=== PATIENT | female | born 1940 | race Two or more races ===

== ENCOUNTER 2023-09-10 09:35 | Inpatient (IN) | payer MEDICARE, MEDICAID ==
[~2023-09-10] VITALS: Ht 152.4 cm; Wt 67.6 kg
[2023-09-10 11:34] LABS: Basophils # (auto) 0 10 ^3/uL (0-0.2); Basophils % (auto) 0.5 % (0.0-2.0); Eosinophils # (auto) 0.1 10 ^3/uL (0-0.8); Eosinophils % (auto) 2.2 % (0.0-7.0); Hematocrit 44.6 % (36.0-46.0); Hemoglobin 14.8 g/dL (12.2-16.2); Lymphocytes % (auto) 29.8 % (10.0-50.0); Mean Corpuscular Hemoglobin 30.2 pg (28.0-32.0); Mean Corpuscular Hgb Conc. 33.2 g/dL (32.0-36.0); Mean Corpuscular Volume 91.2 fL (80.0-100.0); Monocytes # (auto) 0.6 10 ^3/uL (0-1.3); Monocytes % (auto) 9.3 % (0.0-12.0); Neutrophils # (auto) 3.8 10 ^3/uL (1.6-8.6); Neutrophils % (auto) 58.2 % (37.0-80.0); Nucleated Red Blood Cells % 0.1 %; Red Blood Cells 4.89 10^6/uL (4.0-5.20); Red Cell Distribution Width 14.2 % (11.8-14.3); White Blood Cell 6.6 10^3/uL (4.4-10.8)
[2023-09-10 11:51] LABS: Alanine Aminotransferase 14 U/L (7-40); Alkaline Phosphatase 83 U/L (46-116); Anion Gap 4 (5-15); Aspartate Aminotransferase 18 U/L (13-40); BUN/Creatinine Ratio 14.5 (10.0-20.0); Blood Urea Nitrogen 9 mg/dL (9-23); Calcium 9.6 mg/dL (8.7-10.4); Carbon Dioxide 30 mmol/L (20-30); Chloride 102 mmol/L (98-107); Glucose 96 mg/dL (74-106); Potassium 4.3 mmol/L (3.5-5.1); Sodium 136 mmol/L (136-145)
[2023-09-10 11:52] LABS: Albumin 4.6 g/dL (3.2-4.8); Bilirubin, Total 0.7 mg/dL (0.2-1.0); Total Protein 7.6 g/dL (5.7-8.2)
[2023-09-10] MEDS ORDERED: DOCUSATE SOD 100 MG CAP PO PRN (15:45)
[2023-09-10] MEDS ORDERED: HYDROcodone-ACET 5/325MG TAB PO PRN (15:45)
[2023-09-10] MEDS ORDERED: MORPHINE SULFATE INJ 2 MG/ml SYRG IV PRN ×2 (15:45)
[2023-09-10] MEDS ORDERED: SODIUM CHLORIDE 0.9% 1,000 ML IV ONE (15:45)
[2023-09-10] MEDS ORDERED: NITROGLYCERIN 0.4 MG SL TAB SL PRN (15:45)
[2023-09-10] MEDS ORDERED: ONDANSETRON HCL 4 MG/2 ML VIAL IV PRN (15:45)
[2023-09-10] MEDS: ACETAMINOPHEN 325 MG TAB PO PRN (20:33)
[2023-09-10 22:29] LABS: Urine Bacteria FEW /hpf (None Seen); Urine Blood Negative /uL (Negative); Urine Clarity Clear (Clear); Urine Color Colorless (Yellow); Urine Protein, UAD Negative (Negative); Urine Specific Gravity 1.009 (1.001-1.035); Urine Urobilinogen Normal (Negative); Urine WBC 13 /hpf (0 - 5); Urine pH 6.5 (5.0-8.0)
[2023-09-10] MEDS: ATORVASTATIN 20 MG TAB PO SCH (23:53)
[2023-09-11] VITALS (7 sets, daily range): BP systolic 137–147; BP diastolic 70–74; PULSE 52–84; RESP 16–18; TEMP 36.6; O2SAT 92–95
[2023-09-11 05:24] LABS: Basophils # (auto) 0 10 ^3/uL (0-0.2); Basophils % (auto) 0.4 % (0.0-2.0); Eosinophils # (auto) 0.4 10 ^3/uL (0-0.8); Eosinophils % (auto) 4.9 % (0.0-7.0); Hematocrit 41.3 % (36.0-46.0); Lymphocytes # (auto) 2.2 10 ^3/uL (0.4-5.4); Lymphocytes % (auto) 29.8 % (10.0-50.0); Mean Corpuscular Hgb Conc. 33.9 g/dL (32.0-36.0); Mean Corpuscular Volume 91.4 fL (80.0-100.0); Monocytes # (auto) 0.7 10 ^3/uL (0-1.3); Monocytes % (auto) 9.8 % (0.0-12.0); Neutrophils # (auto) 4.1 10 ^3/uL (1.6-8.6); Neutrophils % (auto) 55.1 % (37.0-80.0); Nucleated Red Blood Cells % 0.1 %; Red Blood Cells 4.52 10^6/uL (4.0-5.20); Red Cell Distribution Width 14.8 % (11.8-14.3); White Blood Cell 7.5 10^3/uL (4.4-10.8)
[2023-09-11 05:36] LABS: Alanine Aminotransferase 13 U/L (7-40); Albumin 4.2 g/dL (3.2-4.8); Alkaline Phosphatase 80 U/L (46-116); Anion Gap 6 (5-15); Aspartate Aminotransferase 19 U/L (13-40); BUN/Creatinine Ratio 14.8 (10.0-20.0); Bilirubin, Total 0.6 mg/dL (0.2-1.0); Blood Urea Nitrogen 9 mg/dL (9-23); Calcium 9.2 mg/dL (8.7-10.4); Carbon Dioxide 25 mmol/L (20-30); Chloride 104 mmol/L (98-107); Glucose 102 mg/dL (74-106); Potassium 4.1 mmol/L (3.5-5.1); Sodium 135 mmol/L (136-145); Total Protein 7.1 g/dL (5.7-8.2)
[2023-09-11 05:53] LABS: Triglycerides 106 mg/dL (< 150)
[2023-09-11 05:54] LABS: LDL Cholesterol 77 mg/dL (< 100)
[2023-09-11 05:55] LABS: Cholesterol 146 mg/dL (< 200); HDL Cholesterol 47 mg/dL (40-59)
[2023-09-11] MEDS: ASPirin-EC 81 mg tab PO SCH (10:47)
[2023-09-11] MEDS: ACETAMINOPHEN 325 MG TAB PO PRN ×2 (10:56→22:12)
[2023-09-11] MEDS: ATORVASTATIN 20 MG TAB PO SCH (22:11)
[2023-09-11 23:52] LABS: Erythrocyte Sedimentation Rate 7 mm/hr (0-20)
[2023-09-12 04:59] VITALS: BP 153/74; PULSE 63; RESP 18; TEMP 97.6; O2SAT 94
[2023-09-12 07:14] LABS: Basophils # (auto) 0 10 ^3/uL (0-0.2); Basophils % (auto) 0.5 % (0.0-2.0); Eosinophils # (auto) 0.4 10 ^3/uL (0-0.8); Eosinophils % (auto) 5.7 % (0.0-7.0); Hematocrit 42.6 % (36.0-46.0); Hemoglobin 14.2 g/dL (12.2-16.2); Lymphocytes # (auto) 2.1 10 ^3/uL (0.4-5.4); Lymphocytes % (auto) 32.8 % (10.0-50.0); Mean Corpuscular Hemoglobin 30.2 pg (28.0-32.0); Mean Corpuscular Hgb Conc. 33.3 g/dL (32.0-36.0); Mean Corpuscular Volume 90.5 fL (80.0-100.0); Monocytes # (auto) 0.8 10 ^3/uL (0-1.3); Red Blood Cells 4.71 10^6/uL (4.0-5.20); Red Cell Distribution Width 14.7 % (11.8-14.3); White Blood Cell 6.3 10^3/uL (4.4-10.8)
[2023-09-12 07:54] LABS: Chloride 106 mmol/L (98-107); Potassium 4.5 mmol/L (3.5-5.1)
[2023-09-12 07:55] LABS: Anion Gap 4 (5-15); Carbon Dioxide 30 mmol/L (20-30)
[2023-09-12 07:56] LABS: Calcium 9.3 mg/dL (8.5-10.1)
[2023-09-12 08:00] VITALS: BP 115/70; PULSE 73; PULSE 74; RESP 18; TEMP 97.9; O2SAT 93
[2023-09-12 08:00] LABS: BUN/Creatinine Ratio 17.7 (10.0-20.0); Blood Urea Nitrogen 11 mg/dL (9-23); Glucose 107 mg/dL (74-106)
[2023-09-12 08:04] LABS: Sodium 140 mmol/L (136-145)
[2023-09-12 09:00] VITALS: BP 115/70; PULSE 74; RESP 18; TEMP 97.9; O2SAT 93
[2023-09-12] MEDS: ASPirin-EC 81 mg tab PO SCH (09:31)
[2023-09-12] MEDS: ACETAMINOPHEN 325 MG TAB PO PRN (09:34)
[2023-09-12 13:00] VITALS: BP 121/72; PULSE 70; RESP 20; TEMP 97.7; O2SAT 93
[2023-09-12 13:34] VITALS: BP 115/70; PULSE 74; RESP 18; TEMP 97.9; O2SAT 93
== END 2023-09-12 14:47 | disposition home or self-care (01) | DRG 103 ==
LOC: ER 09:35 → TELE 15:45 → TELE-WESTW 09-11 08:36
PROVIDERS: ADMIT Nurse Practitioner Family; ATTEND Internal Medicine Pulmonary Disease
DX: R51.9 Headache, unspecified (principal); I25.10 Atherosclerotic heart disease of native coronary artery without angina pectoris; Z83.3 Family history of diabetes mellitus; H53.8 Other visual disturbances
CPT/HCPCS: 36415; 70450; 70551; 71045; 80048; 80053; 80061; 81001; 83036; 83880; 84443; 84484; 85025; 85652; 86141; 93005; 93306; G0378; J2405

== ENCOUNTER 2025-02-07 12:10 | Inpatient (IN) | payer OTHER, MEDICAID ==
[~2025-02-07] VITALS: Ht 152.4 cm; Wt 69.1 kg
[2025-02-07 12:58] LABS: Basophils # (auto) 0.1 10 ^3/uL (0-0.2); Basophils % (auto) 0.6 % (0.0-2.0); Eosinophils # (auto) 0.1 10 ^3/uL (0-0.8); Eosinophils % (auto) 1.2 % (0.0-7.0); Hematocrit 41.7 % (36.0-46.0); Hemoglobin 13.8 g/dL (12.2-16.2); Lymphocytes # (auto) 1.6 10 ^3/uL (0.4-5.4); Lymphocytes % (auto) 18.1 % (10.0-50.0); Mean Corpuscular Hemoglobin 29.9 pg (28.0-32.0); Mean Corpuscular Hgb Conc. 33.1 g/dL (32.0-36.0); Mean Corpuscular Volume 90.2 fL (80.0-100.0); Monocytes # (auto) 0.9 10 ^3/uL (0-1.3); Monocytes % (auto) 10.4 % (0.0-12.0); Neutrophils # (auto) 6.1 10 ^3/uL (1.6-8.6); Neutrophils % (auto) 69.7 % (37.0-80.0); Platelet Count (auto) 238 10^3/uL (140-450); Red Blood Cells 4.62 10^6/uL (4.0-5.20); Red Cell Distribution Width 14.6 % (11.8-14.3); White Blood Cell 8.8 10^3/uL (4.4-10.8)
--- NOTE | 2025-02-07 13:21 | DVH ---
Exam: CT CT AB PEL WO CON-NO ORAL OR IV History: pain Comparison Study: None Technique: Multidetector spiral CT of the abdomen was performed from lung bases to pubic symphysis. I maging was performed without IV contrast. Axial, coronal and sagittal multiplanar reformats were obta ined from the axial data set by the technologist. Radiation Dose : 1. Abdomen/Pelvis: CTDIvol 11.1 mGy, DLP 528.3 mGy*cm. Findings: Evaluation of solid organs is limited due to lack of intravenous contrast use. Lung Bases: 0.5 cm nodule in the right middle lobe. Tree-in-bud nodularity at the bilateral lung base s. Cardiomegaly. Coronary artery calcifications. Vascular calcifications of the aorta. Liver: The liver is normal in size. No focal lesions. Gallbladder and Biliary Tree: Unremarkable Spleen: Unremarkable Pancreas: The pancreas is grossly normal in appearance. Adrenal Glands: Unremarkable Kidneys: Kidneys are grossly normal without calculi or hydronephrosis. Bladder: Grossly unremarkable for degree of distention. Bowel: The stomach is grossly normal in appearance. Moderate volume colonic stool. The appendix is no t visualized; however, no secondary findings of acute appendicitis identified. Ascites: Absent Lymphadenopathy: No mesenteric, retroperitoneal or periportal lymphadenopathy. Abdominal Wall and Mesentery: Unremarkable. Vasculature: The visualized abdominal aorta is normal in size and caliber. Evaluation of abdominal a nd pelvic vessels is limited due to lack of intravenous contrast. Pelvic Organs: Unremarkable Musculoskeletal: No aggressive focal bony lesions, acute fractures or dislocation. Multilevel degener ative changes of the spine. Chronic appearing compression fractures of L4 and L1. IMPRESSION: Tree-in-bud nodularity is present in the lung bases which may be infectious or inflammatory. Indeterminate 0.5 cm nodule in the right middle lobe. Moderate volume diffuse colonic stool. Fleischner Society pulmonary nodule recommendations (2017): Single solid nodule <6 mm Low-risk patients: no routine follow-up required High-risk patients: optional CT at 12 months (particularly with suspicious nodule morphology and/or upper lobe location) Radiation optimization: All CT scans at this facility use at least one of these dose optimization randolph hniques: automated exposure control mA and/or kV adjustment per patient size (includes targeted exam s where dose is matched to clinical indication) or iterative reconstruction.
[2025-02-07 13:22] LABS: Alanine Aminotransferase 16 U/L (7-40); Albumin 4.4 g/dL (3.2-4.8); Anion Gap 4 (5-15); Aspartate Aminotransferase 22 U/L (13-40); BUN/Creatinine Ratio 22.2 (10.0-20.0); Bilirubin, Total 0.5 mg/dL (0.2-1.0); Blood Urea Nitrogen 16 mg/dL (9-23); Chloride 105 mmol/L (98-107); Lipase 26 U/L (12-53); Potassium 4.9 mmol/L (3.5-5.1); Sodium 140 mmol/L (136-145); Total Protein 7.1 g/dL (5.7-8.2)
--- NOTE | 2025-02-07 13:22 | ED.PDOC ---
GI ASSESSMENT HPI Comments This is an 84-year-old female who comes in with chief complaint of abdominal pain which is diffuse in nature. The symptoms started approximately two weeks ago and is now associated with some abdominal distention. She is also having some mild difficulty walking. The patient denies any nausea, vomiting or diarrhea. The patient states that the pain is a 9/10 at this time. She was brought to the emergency department's by a friend in a wheelchair. She was actually initially seen by her primary care doctor and then sent to the emergency department's for evaluation because there was a concern about a bowel obstruction. Chief Complaint: Abdominal Pain Time Seen by MD: 12:11 Reviewed Notes: Nurses Notes, Medications, Allergies (No allergies to medications) Allergies: Coded Allergies: NO KNOWN ALLERGIES (Unverified , 09/10/23) Home Meds No Active Prescriptions or Reported Meds Information Source: Patient, Relative Mode of Arrival: Wheelchair Timing: Days Duration: Since onset Prehospital treatment: None Quality: Cramping Vomitus: None Stool: Normal Severity: Moderate Recent: None Recent Hx of: None Pain Location: Diffuse Modifying Factors: Nothing Associated sign and symptoms: Abdominal Pain, Other (Abdominal distention) Past Medical History PAST MEDICAL HISTORY: Denies Surgical History: Hernia Repair, Hysterectomy, Tonsillectomy [employer]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 Family History Family History: Unknown Social History Smoker: Quit Less Than 1 Year, Unknown Alcohol: Occasionally, Unknown Drugs: Denies Drug Use Lives In: Home Constitutional: denies: chills, diaphoresis, fatigue, fever, malaise, sweats, weakness, others EENTM: denies: blurred vision, double vision, ear bleeding, ear discharge, ear drainage, ear pain, ear ringing, eye pain, eye redness, hearing loss, mouth pain, mouth swelling, nasal discharge, nose bleeding, nose congestion, nose pain, photophobia, tearing, throat pain, throat swelling, voice changes, others Respiratory: denies: cough, hemoptysis, orthopnea, SOB at rest, shortness of breath, SOB with excertion, stridor, wheezing, others Cardiovascular: denies: chest pain, dizzy spells, diaphoresis, Dyspnea on exertion, edema, irregular heart beat, left arm pain, lightheadedness, palpitations, PND, syncope, others Gastrointestinal: reports: abdomen distended, abdominal pain; denies: blood streaked bowels, constipated, diarrhea, dysphagia, difficulty swallowing, hematemesis, melena, nausea, poor appetite, poor fluid intake, rectal bleeding, rectal pain, vomiting, others Genitourinary: denies: abnormal vagina bleeding, burning, dyspareunia, dysuria, flank pain, frequency, hematuria, incontinence, pain, , vagina discharge, urgency, others Neurological: denies: dizziness, fainting, headache, left sided numbness, left sided weakness, numbness, paresthesia, pre-existing deficit, right sided numbness, right sided weakness, seizure, speech problems, tingling, tremors, weakness, others Musculoskeletal: denies: back pain, gout, joint pain, joint swelling, muscle pain, muscle stiffness, neck pain, others Integumetry: denies: bruises, change in color, change in hair/nails, dryness, laceration, lesions, lumps, rash, wounds, others Allergic/Immunocompromised: denies: Difficulty Healing, Frequent Infections, Hives, Itching, others Hematologic/Lymphatic: denies: anemia, blood clots, easy bleeding, easy bruising, swollen glands, others Endocrine: denies: excessive hunger, excessive sweating, excessive thirst, excessive urination, flushing, intolerance to cold, intolerance to heat, unexplained weight gain, unexplained weight loss, others Psychiatric: denies: anxiety, bipolar disorder, depression, hopeless, panic disorder, schizophrenia, sleepless, suicidal, others Physical Exam General Appearance: Moderate Distress, Obese HEENT: Normal ENT Inspection, Pharynx Normal, TMs Normal Neck: Full Range of Motion, Non-Tender, Normal, Normal Inspection Respiratory: Chest Non-Tender, Lungs Clear, No Accessory Muscle Use, No Respiratory Distress, Normal Breath Sounds Cardiovascular: No Edema, No JVD, No Murmur, No Gallop, Normal Peripheral Pulses, Regular Rate/Rhythm Breast Exam: Deferred Gastrointestinal: Distended, No Organomegaly, No Pulsatile Mass, Normal Bowel Sounds, Soft, Tenderness Genitalia: Deferred Pelvic: Deferred Rectal: Deferred Extremities: No calf tenderness, Normal capillary refill, Normal inspection, Normal range of motion, Non-tender, No pedal edema Musculoskeletal : Apperance: Normal Neurologic: Alert, director drug safety II-XII nml as Tested, Motor Weakness, Normal Affect, Normal Mood, No Sensory Deficits Cerebellar Function: Normal Reflexes: Normal Skin: Dry, Normal Color, Warm Lymphatic: No Adenopathy Was a procedure done? Was a procedure done?: No GI differential Dx Differential Diagnosis: Cholangitis, Cholecystitis, Diverticular disease, Gastritis/PUD, Gastroenteritis, Inflammatory BD, Pancreatitis, UTI, Electrolyte Imbalance, Food Poisoning X-Ray, Labs, Meds, VS Vital Signs Date Time Temp Pulse Resp B/P (MAP) Pulse Ox O2 Delivery O2 Flow Rate FiO2 02/07/25 13:54 85 18 93 Room Air* 0 21 02/07/25 13:37 97.8 85 18 163/83 (109) 93 97.8 02/07/25 12:45 99.5 75 15 136/69 (91) 98 99.5 Lab Test 02/07/25 13:39 02/07/25 12:48 Range/Units Urine Color Light-yellow Yellow Urine Clarity Turbid H Clear Urine pH 7.0 5.0-9.0 Urine Specific [place] 1.012 1.001-1.035 Urine Protein Negative Negative Urine Ketones Negative Negative Urine Blood Negative Negative /uL Urine Nitrite Negative Negative Urine Bilirubin Negative Negative Urine Urobilinogen Normal Negative mg/dL Urine Leukocyte Esterase Negative Negative /uL Urine RBC 2 0 - 4 /hpf Urine Microscopic WBC < 1 0-5 /HPF Urine Squamous Epithelial Cells Few <5 /hpf Urine Bacteria Few H None Seen /hpf Urine Glucose Normal Normal mg/dL White Blood Count 8.8 4.4-10.8 10^3/uL Red Blood Count 4.62 4.0-5.20 10^6/uL Hemoglobin 13.8 12.2-16.2 g/dL Hematocrit 41.7 36.0-46.0 % Mean Corpuscular Volume 90.2 80.0-100.0 fL Mean Corpuscular Hemoglobin 29.9 28.0-32.0 pg Mean Corpuscular Hemoglobin Concent 33.1 32.0-36.0 g/dL Red Cell Distribution Width 14.6 H 11.8-14.3 % Platelet Count 238 140-450 10^3/uL Mean Platelet Volume 8.0 6.9-10.8 fL Neutrophils (%) (Auto) 69.7 37.0-80.0 % Lymphocytes (%) (Auto) 18.1 10.0-50.0 % Monocytes (%) (Auto) 10.4 0.0-12.0 % Eosinophils (%) (Auto) 1.2 0.0-7.0 % Basophils (%) (Auto) 0.6 0.0-2.0 % Neutrophils # (Auto) 6.1 1.6-8.6 10 ^3/uL Lymphocytes # (Auto) 1.6 0.4-5.4 10 ^3/uL Monocytes # (Auto) 0.9 0-1.3 10 ^3/uL Eosinophils # (Auto) 0.1 0-0.8 10 ^3/uL Basophils # (Auto) 0.1 0-0.2 10 ^3/uL Nucleated Red Blood Cells 0.0 % Sodium Level 140 136-145 mmol/L Potassium Level 4.9 3.5-5.1 mmol/L Chloride Level 105 98-107 mmol/L Carbon Dioxide Level 31 20-31 mmol/L Anion Gap 4 L 5-15 Blood Urea Nitrogen 16 9-23 mg/dL Creatinine 0.72 0.550-1.02 mg/dL Glomerular Filtration Rate Calc 82 >90 mL/min BUN/Creatinine Ratio 22.2 H 10.0-20.0 Serum Glucose 124 H 74-106 mg/dL Calcium Level 10.0 8.7-10.4 mg/dL Total Bilirubin 0.5 0.2-1.0 mg/dL Aspartate Amino Transferase (AST) 22 13-40 U/L Alanine Aminotransferase (ALT) 16 7-40 U/L Alkaline Phosphatase 151 H 46-116 U/L Total Protein 7.1 5.7-8.2 g/dL Albumin 4.4 3.2-4.8 g/dL Lipase 26 12-53 U/L The patient's CBC is within normal limits. The chemistry panel is within normal limits. The CT scan of the abdomen and pelvis shows: IMPRESSION: Tree-in-bud nodularity is present in the lung bases which may be infectious or inflammatory. Indeterminate 0.5 cm nodule in the right middle lobe. Moderate volume diffuse colonic stool. Fleischner Society pulmonary nodule recommendations (2017): Single solid nodule <6 mm Low-risk patients: no routine follow-up required High-risk patients: optional CT at 12 months (particularly with suspicious nodule morphology and/or upper lobe location) At this time, the patient continues to have significant abdominal pain The urine test is negative Images Reviewed?: Images reviewed and evaluated by me Time of 1ST Reevaluation: 13:22 Reevaluation 1ST: Unchanged Patient Education/Counseling: Diagnosis, Treatment, Prognosis Family Education/Counseling: No Family Present Departure 1 Departure Time of Disposition: 15:33 Impression: Primary Impression: Intractable abdominal pain Disposition: 09 ADMITTED INPATIENT Admit to: Med Surg Condition: Fair e-Prescriptions No Active Prescriptions or Reported Meds Critical Care Note Critical Care Time?: No Stability Stability form required: Yes Unstable for transfer: ED Physician Assesment (Clinical assesment) Heart Score Heart Score: Heart Score Response (Comments) Value History N/A 0 EKG N/A 0 Age N/A 0 Risk Factors N/A 0 Troponin N/A 0 Total 0 GIOVANNY BASS MD Feb 07, 2025 13:22
[2025-02-07 13:23] LABS: Alkaline Phosphatase 151 U/L (46-116); Carbon Dioxide 31 mmol/L (20-31); Glucose 124 mg/dL (74-106)
[2025-02-07] MEDS: MORPHINE SULFATE 4 MG/ML SYR/VIAL IV ONE (13:51)
[2025-02-07] MEDS: ONDANSETRON HCL 4 MG/2 ML VIAL IV ONE (13:52)
[2025-02-07 13:54] VITALS: PULSE 85; RESP 18; O2SAT 93
[2025-02-07 14:12] LABS: Urine Bacteria FEW /hpf (None Seen); Urine Blood Negative /uL (Negative); Urine Clarity Turbid (Clear); Urine Color Light-Yellow (Yellow); Urine Protein, UAD Negative (Negative); Urine Specific Gravity 1.012 (1.001-1.035); Urine Squamous Epithelial Cell FEW /hpf (<5); Urine Urobilinogen Normal (Negative); Urine WBC < 1 /HPF (0-5)
[2025-02-07] MEDS ORDERED: ONDANSETRON HCL 4 MG/2 ML VIAL IV PRN (19:15)
[2025-02-07] MEDS ORDERED: DOCUSATE SOD 100 MG CAP PO PRN (19:15)
[2025-02-07] MEDS: LACTULOSE 20Gm/30ML SOLN PO ONE (19:15)
[2025-02-07] MEDS ORDERED: NITROGLYCERIN 0.4 MG SL TAB SL PRN (19:15)
[2025-02-07] MEDS ORDERED: IPRATROPIUM BROM 0.5 MG/2.5ML INH SOL NEB PRN (19:15)
[2025-02-07] MEDS ORDERED: MORPHINE SULFATE INJ 2 MG/ml SYRG IV PRN (19:15)
[2025-02-07] MEDS ORDERED: ALBUTEROL SULF 2.5 MG/0.5ML(0.5%) NEB SOLN NEB PRN (19:15)
--- NOTE | 2025-02-07 19:24 | DVHHP2 ---
History of Present Illness Reason for Visit: abd pain History of Present Illness 84-year-old female past medical history asthma hernia repair hysterectomy tonsillectomy chief complaint patient states he has been having abdominal pain for the last two weeks. She also has some distention. She states the pain is so severe in her abdomen. It radiates to her flank. Patient states it is like a burning pain. Movement makes it worse sitting still improves his symptoms. She denies any headache no dizziness no chest pain no shortness with the breath no leg swelling does complain of upper calf pain with. She denies any vomiting or diarrhea. No fever she states she has a BM yesterday. Patient was sent by her primary doctor to rule out bowel obstruction. When speaking with the patient about lung history patient states she has a history asthma she did stopped smoking six years ago. But she has no history of TB or exposure he was Tb or TB care. With these findings we will admit patient and ask for Infectious Disease along with Pulmonary consult when evaluating patient's labs and imaging from ED morphine was even along with Zofran. CBC was unremarkable CMP unremarkable UA shows few bacteria but denies any urinary symptoms CT scan abdomen and pelvis picked up the right mid lobe nodule constipation tree in bud nodule infectious versus inflammatory process. With these findings we will admit for further workup Past Medical History Asthma Past Surgical History Hernia repair, hysterectomy, tonsillectomy Family History Reviewed, non-contributory to the management of this case. Past Social History The patient lives at home, denies smoking, alcohol or illicit drugs abuse. Review of Systems Constitutional: No: Fever, Chills, Sweats, Weakness, Malaise, Other Eyes: No: Pain, Vision change, Conjunctivae inflammation, Eyelid inflammation, Other, Redness ENT: No: Ear pain, Ear discharge, Nose pain, Nose discharge, Nose congestion, Mouth pain, Mouth swelling, Throat pain, Throat swelling, Other Respiratory: No: Cough, Dry, Shortness of breath, SOB with excertion, Wheezing, Hemoptysis, Pleuritic Pain, Sputum, Wheezing, Other Cardiovascular: No: Chest Pain, Palpitations, Orthopnea, Paroxysmal Noc. Dyspnea, Edema, Lt Headedness, Other Gastrointestinal: Abdominal Pain; No: Nausea, Vomiting, Diarrhea, Constipation, Melena, Hematochezia, Other Genitourinary: No Dysuria, No Frequency, No Incontinence, No Hematuria, No Retention, No Other Musculoskeletal: No: other, neck pain, shoulder pain, arm pain, back pain, hand pain, leg pain, foot pain Skin: No: Rash, Lesions, Jaundice, Bruising, Other Neurological: No: Weakness, Numbness, Incoordination, Change in speech, Co nfusion, Seizures, Other Allergies: Coded Allergies: NO KNOWN ALLERGIES (Unverified , 09/10/23) Exam Vital Signs Vital Signs Date Time Temp Pulse Resp B/P (MAP) Pulse Ox O2 Delivery O2 Flow Rate FiO2 02/07/25 16:21 98.0 87 18 143/84 (103) 91 98.0 02/07/25 13:54 Room Air* 0 21 General Appearance: Alert, Oriented X3, Cooperative, No acute distress HEENT: Atraumatic, PERRLA, EOMI, Mucous membr. moist/pink Respiratory: Clear to auscultation, Normal air movement Cardiovascular: Regular rate, Normal S1, Normal S2, No murmurs Abdominal: Normal bowel sounds, Soft, No hepatospenomegaly, No masses, Other (guarding and rebound tenderness ) Extremities: No clubbing, No cyanosis, No edema, Normal pulses, No tenderness/swelling Skin: No rashes, No breakdown, No significant lesion Neuro: Normal gait, Normal speech, Strength at 5/5 X4 ext, Normal tone, Sensation intact, Cranial nerves 3-12 NL Psych/Mental Status: Mental status NL, Mood NL Labs/Xrays CT scan of the abdomen and pelvis showed constipation, also shows right mid lobe nodule along with tree-in-bud nodule infectious versus inflammatory change I reviewed labs, imaging CT scan abdomen pelvis, EKG and all diagnostic studies on this patient from ED records and the medical chart Labs Test 02/07/25 13:39 02/07/25 12:48 Range/Units Urine Color Light-yellow Yellow Urine Clarity Turbid H Clear Urine pH 7.0 5.0-9.0 Urine Specific [place] 1.012 1.001-1.035 Urine Protein Negative Negative Urine Ketones Negative Negative Urine Blood Negative Negative /uL Urine Nitrite Negative Negative Urine Bilirubin Negative Negative Urine Urobilinogen Normal Negative mg/dL Urine Leukocyte Esterase Negative Negative /uL Urine RBC 2 0 - 4 /hpf Urine Microscopic WBC < 1 0-5 /HPF Urine Squamous Epithelial Cells Few <5 /hpf Urine Bacteria Few H None Seen /hpf Urine Glucose Normal Normal mg/dL White Blood Count 8.8 4.4-10.8 10^3/uL Red Blood Count 4.62 4.0-5.20 10^6/uL Hemoglobin 13.8 12.2-16.2 g/dL Hematocrit 41.7 36.0-46.0 % Mean Corpuscular Volume 90.2 80.0-100.0 fL Mean Corpuscular Hemoglobin 29.9 28.0-32.0 pg Mean Corpuscular Hemoglobin Concent 33.1 32.0-36.0 g/dL Red Cell Distribution Width 14.6 H 11.8-14.3 % Platelet Count 238 140-450 10^3/uL Mean Platelet Volume 8.0 6.9-10.8 fL Neutrophils (%) (Auto) 69.7 37.0-80.0 % Lymphocytes (%) (Auto) 18.1 10.0-50.0 % Monocytes (%) (Auto) 10.4 0.0-12.0 % Eosinophils (%) (Auto) 1.2 0.0-7.0 % Basophils (%) (Auto) 0.6 0.0-2.0 % Neutrophils # (Auto) 6.1 1.6-8.6 10 ^3/uL Lymphocytes # (Auto) 1.6 0.4-5.4 10 ^3/uL Monocytes # (Auto) 0.9 0-1.3 10 ^3/uL Eosinophils # (Auto) 0.1 0-0.8 10 ^3/uL Basophils # (Auto) 0.1 0-0.2 10 ^3/uL Nucleated Red Blood Cells 0.0 % Sodium Level 140 136-145 mmol/L Potassium Level 4.9 3.5-5.1 mmol/L Chloride Level 105 98-107 mmol/L Carbon Dioxide Level 31 20-31 mmol/L Anion Gap 4 L 5-15 Blood Urea Nitrogen 16 9-23 mg/dL Creatinine 0.72 0.550-1.02 mg/dL Glomerular Filtration Rate Calc 82 >90 mL/min BUN/Creatinine Ratio 22.2 H 10.0-20.0 Serum Glucose 124 H 74-106 mg/dL Calcium Level 10.0 8.7-10.4 mg/dL Total Bilirubin 0.5 0.2-1.0 mg/dL Aspartate Amino Transferase (AST) 22 13-40 U/L Alanine Aminotransferase (ALT) 16 7-40 U/L Alkaline Phosphatase 151 H 46-116 U/L Total Protein 7.1 5.7-8.2 g/dL Albumin 4.4 3.2-4.8 g/dL Lipase 26 12-53 U/L Assessment/Plan Assessment/Plan acute intractable abdominal pain ct scan found constipation ordered lactulose one dose ordered miralax for now diet as can tolerate ordered ivf ordered morphine prn pain acute tree in bud nodules of lungs and right mid lob nodule infection vs inflammatory (pt denies any hx of TB) found on ct scan of abd pelvis ordered id curbside ct scan chest and can start azithromax Dr. Sheldon ordered pulmonary consult DR. alcazar fu results ordered sputum culture fu results ordered fungal sputum culture fu results ordered AFB daily x [address] scan chest ordered fu results acute constipation ordered lactulose ordered miralax acute right leg pain ordered us fu results ordered morphine as needed for pain chronic problems asthma DuoNeb prn fen/ppx diet ivf scd no gi ppx since no hx of gerds or gi bleed plan admit to medicine pulmonary and ID consult fu recs Plan discussed with: Patient My Orders Orders - GENTRY SAXENA DNP Procedure Category Date Status Time *Consult CONS 02/07/25 Verified / 19:01 * Infectious Anastasia- CONS 02/07/25 Verified Miguelangel Sheldon 19:01 Azithromycin 500mg/ PHA 02/08/25 Verified 250ml (Zithromax 50 10:00 Azithromycin 500mg/ PHA 02/07/25 Verified 250ml (Zithromax 50 19:[address] 02/07/25 Verified 19:01 Afb Cult/Smear Broth ARIELA 02/08/25 Verified Suscep 05:00 Afb Cult/Smear Broth ARIELA 02/09/25 Verified Suscep 05:00 Afb Cult/Smear Broth ARIELA 02/10/25 Verified Suscep 05:00 Respiratory Culture ARIELA 02/07/25 Verified W/ Gs 19:01 Lactulose Oral PHA 02/07/25 Verified 19:15 Polyethylene Glycol PHA 02/08/25 Verified 17g Powder (Miralax 10:00 Albuterol Medneb PHA 02/07/25 Verified (Ventolin Medneb) 19:15 Ipratropium Medneb PHA 02/07/25 Verified (Atrovent Medneb) 19:15 Cont Med Neb Intial Tx RT 02/07/25 Verified 19:01 Fungal Antibodies LAB 02/07/25 Verified 19:01 Admit ADMIT 02/07/25 Verified 19:01 Allergies [place] 02/07/25 Verified 19:01 Code Status CODE 02/07/25 Verified 19:01 0.9% Ns 1000 Ml PHA 02/07/25 Verified 19:15 Oxygen Per Hour RT 02/07/25 Verified 19:01 Ondansetron Hcl PHA 02/07/25 Verified (Zofran) 19:15 Docusate Sodium PHA 02/07/25 Verified Capsule (Colace 19:15 Fall Risk Precautions MASON 02/07/[address] 19:01 Complete Blood Count LAB 02/08/25 Verified 04:00 Comprehensive LAB 02/08/25 Verified Metabolic Panel 04:00 Cardiac DIET 02/08/25 Verified Diet-2gna,Lofat,Lochol Breakfast Condition: Stable [place] 02/07/25 Verified 19:01 BRP [facility] 02/07/25 Verified 19:01 Morphine Sulfate PHA 02/07/25 Verified Injection 19:15 Sequential [place] 02/07/25 Verified Compression Device Nitroglycerin [facility] 02/07/25 Verified Sublingual (Ntrostat 19:15 Stat Ekg For Chest [facility] 02/07/25 Verified Pain 19:01 Notify Of Changes [facility] 02/07/25 Verified From Base 19:01 Supervisor Packing For [facility] 02/07/25 Verified 24 Hours 19:01 Emergency Dysrhythmia [facility] 02/07/25 Verified Protocol 19:01 Rhythm Strips Once [facility] 02/07/25 Verified Every Shift 19:01 Oxygen By Nasal RT 02/07/25 Verified Cannula 19:01 Date of Service: Feb 07, 2025 Billing Provider: GENTRY SAXENA DNP Common Visit Codes: [id number] INP/OBS CARE (HIGH) GENTRY SAXENA DNP Feb 07, 2025 19:24
[2025-02-07 19:32] VITALS: BP 143/84; PULSE 87; RESP 18; TEMP 98; O2SAT 93
[2025-02-07] MEDS ORDERED: IOHEXOL 300 MG/ML 100ML BOTTLE IJ ONE (20:15)
--- NOTE | 2025-02-07 20:34 | DVH ---
Right lower extremity venous duplex Clinical History: eval for dvt Comparison: None Technique: Duplex Doppler evaluation of the deep venous system of the right lower extremity from the common femo ral vein to the popliteal vein including color Doppler and spectral/pulsed waveform analysis was perf ormed. Findings: The common femoral vein demonstrates appropriate compressibility and waveform variability. There is compressibility/patency of the great saphenous vein at the proximal thigh. The femoral vein demonstrates appropriate compressibility and waveform variability. The deep femoral vein demonstrates appropriate compressibility and waveform variability. The popliteal vein demonstrates appropriate compressibility and waveform variability. There is normal compressibility at the tibioperoneal trunk. Impression: No evidence of right femoropopliteal venous thrombosis.
[2025-02-07 23:06] VITALS: PULSE 82; RESP 19; O2SAT 94
[2025-02-07] MEDS ORDERED: FLUT110A8 INH (23:09)
[2025-02-07] MEDS ORDERED: ALBU108A5 PO (23:09)
[2025-02-07] MEDS: SODIUM CHLORIDE 0.9% 1,000 ML IV SCH (23:37)
[2025-02-07] MEDS: AZITHROMYCIN 500MG/ 250ML 250 ML IV ONE (23:42)
[2025-02-08] VITALS (10 sets, daily range): BP systolic 122–146; BP diastolic 64–80; PULSE 67–94; RESP 16–19; TEMP 97.5–98.1; O2SAT 67–96
[2025-02-08 05:48] LABS: Basophils # (auto) 0.1 10 ^3/uL (0-0.2); Eosinophils # (auto) 0.3 10 ^3/uL (0-0.8); Eosinophils % (auto) 3.7 % (0.0-7.0); Hematocrit 38.9 % (36.0-46.0); Hemoglobin 13.4 g/dL (12.2-16.2); Lymphocytes # (auto) 2.5 10 ^3/uL (0.4-5.4); Lymphocytes % (auto) 29.9 % (10.0-50.0); Mean Corpuscular Hemoglobin 30.9 pg (28.0-32.0); Mean Corpuscular Hgb Conc. 34.4 g/dL (32.0-36.0); Mean Corpuscular Volume 89.9 fL (80.0-100.0); Monocytes % (auto) 11.5 % (0.0-12.0); Neutrophils # (auto) 4.6 10 ^3/uL (1.6-8.6); Neutrophils % (auto) 53.9 % (37.0-80.0); Platelet Count (auto) 222 10^3/uL (140-450); Red Blood Cells 4.33 10^6/uL (4.0-5.20); Red Cell Distribution Width 14.7 % (11.8-14.3); White Blood Cell 8.5 10^3/uL (4.4-10.8)
[2025-02-08 06:10] LABS: Alanine Aminotransferase 14 U/L (7-40); Albumin 3.9 g/dL (3.2-4.8); Anion Gap 5 (5-15); Aspartate Aminotransferase 19 U/L (13-40); BUN/Creatinine Ratio 23.1 (10.0-20.0); Bilirubin, Total 0.6 mg/dL (0.2-1.0); Blood Urea Nitrogen 15 mg/dL (9-23); Calcium 9.4 mg/dL (8.7-10.4); Carbon Dioxide 29 mmol/L (20-31); Chloride 107 mmol/L (98-107); Potassium 4.5 mmol/L (3.5-5.1); Sodium 141 mmol/L (136-145); Total Protein 6.4 g/dL (5.7-8.2)
[2025-02-08 06:21] LABS: Alkaline Phosphatase 123 U/L (46-116); Glucose 119 mg/dL (74-106)
[2025-02-08] MEDS: POLYETHYLENE GLYCOL 17 GM PWDR PO SCH (09:37)
[2025-02-08] MEDS: AZITHROMYCIN 500MG/ 250ML 250 ML IV SCH (09:38)
[2025-02-08] MEDS: ACETAMINOPHEN 325 MG TAB PO PRN (09:49)
--- NOTE | 2025-02-08 10:38 | DVH ---
Exam: CT CT CHEST/AB/PL W CON- IV ONLY History: EVAL FOR ACUTE TREE IN BUD NODULE COMPARISON: None Technique: Multidetector spiral CT of the abdomen and pelvis was performed from lung bases to pubic s ymphysis. Intravenous contrast was administered during this examination. Portal venous imaging was o btained. Axial, coronal and sagittal multiplanar reformats were performed by the technologist on a [employer] workstation. Radiation Dose : 1. Abdomen/Pelvis: CTDIvol 9.21mGy, DLP 625.6 mGy*cm. Findings: Lung Bases: 0.5 cm nodule in the anterior right lung base (image 42/54). Diffuse tree-in-bud nodularity in the lungs may represent atypical infectious or inflammatory process . Liver: The liver is normal in size. No focal lesions. Normal hepatic vascular enhancement. Gallbladder and Biliary Tree: Unremarkable Spleen: Unremarkable Pancreas: The pancreas is normal in appearance without focal lesions or abnormal enhancement. Adrenal Glands: Unremarkable Kidneys: No hydronephrosis. Bladder: Unremarkable Bowel: The stomach is grossly normal in appearance. Small bowel and colon are normal in caliber and d istribution. The appendix is not visualized; however, no secondary findings of acute appendicitis betito ntified. Ascites: Absent Lymphadenopathy: No mesenteric, retroperitoneal or periportal lymphadenopathy. Abdominal Wall and Mesentery: Unremarkable. Vasculature: The visualized abdominal aorta is normal in size and caliber. Abdominal and pelvic vess els demonstrate normal enhancement. Pelvic Organs: Unremarkable Musculoskeletal: No aggressive focal bony lesions, acute fractures or dislocation. Chronic appearing compression fracture of L4 and L1. IMPRESSION: Diffuse mild tree in bud nodularity is nonspecific but may represent atypical infectious or inflammat ory process. 0.5 cm nodule in the anterior right lung base. No acute finding involving the abdomen or pelvis. Fleischner Society pulmonary nodule recommendations (2017): Single solid nodule <6 mm Low-risk patients: no routine follow-up required High-risk patients: optional CT at 12 months (particularly with suspicious nodule morphology and/or upper lobe location) Solitary solid nodule 6-8 mm Low-risk patients: CT at 6-12 months, then consider CT at 18-24 months High-risk patients: CT at 6-12 months, then CT at 18-24 months Solitary solid nodule >8 mm (>250 mm3) Low-risk and high-risk patients: consider CT at 3 months, PET/CT, or tissue sampling Multiple solid nodules <6 mm Low-risk patients: no routine follow-up required High-risk patients: optional CT at 12 months Multiple solid nodules >6 mm Low-risk patients: CT at 3-6 months, then consider CT at 18-24 months High-risk patients: CT at 3-6 months, then CT at 18-24 months When multiple nodules are present, the most suspicious nodule should guide further individualized management. Solitary groundglass opacities < 6 mm require no follow-up Multiple groundglass opacities < 6 mm: CT 3-6 months. If stable consider CT at 2 , and 4 years Groundglass opacities >6 mm: follow-up in 6-12 months and then every 2 years for 5 years. Groundglass opacities greater than 6 mm with part solid component follow-up CT in 3-6 months to confirm persistence. If unchanged and solid component remains less than [address] for 5 years Multiple groundglass opacities greater than 6 mm: CT at 3-6 months. Subsequent management based on the most suspicious nodules. These recommendations do not necessarily apply to women, patients with immunosuppression or a prior history of cancer, patients with multiple nodules that are suspicious for metastasis or infection, or patients with mediastinal lymphadenopathy or pleural effusion in whom cancer is strongly suspected. Radiation optimization: All CT scans at this facility use at least one of these dose optimization randolph hniques: automated exposure control mA and/or kV adjustment per patient size (includes targeted exam s where dose is matched to clinical indication) or iterative reconstruction.
--- NOTE | 2025-02-08 18:39 | DVHPNRES ---
Progress Note Date Seen: Feb 08, 2025 Resident Creating Document: JHDerickJDANNIELLE MendezGRADY RESIDENT Medical Necessity Reason Pt with a Central, PICC or Fol: No Subjective Review of Systems Patient is a 84-year-old female with a past medical history of asthma, bronchitis presented to the ED with a chief complaint of abdominal pain. Patient reports that since the last 2 weeks she has been having worsening bilateral groin pain and it has been difficult for her to walk and move around. Patient denies any dysuria, hematuria, flank pain, nausea or vomiting, diarrhea or constipation. Patient denied shortness of breath, chest pain, palpitations. Patient was also reported that she noticed swelling bulging out from the lower abdomen and she was concerned for having a hernia. Past medical history: Asthma, bronchitis Past surgical history: Social history: Patient was with family and denies smoking, alcohol, drug use Home medications: Albuterol inhaler as needed Review of systems Patient seen and examined at the bedside Denies shortness of breath, cough, fever, chills She does report of bilateral groin pain which increases with moving around in the bed No other acute complaints Objective vital signs Vital Sign Date Time Temp Pulse Resp B/P (MAP) Pulse Ox O2 Delivery O2 Flow Rate FiO2 02/08/25 17:05 97.8 79 16 139/80 (99) 95 97.8 02/08/25 08:14 Room Air 0.0 02/08/25 08:14 21 Total Intake and Output 02/07/25 02/07/25 02/08/25 15:00 23:00 07:00 Intake Total 250 ml Balance 250 ml medications Current Medications Medications Dose Ordered Sig/Dante Route Start Time Stop Time Status Last Admin Dose Admin Azithromycin 250 ml @ 125 mls/hr DAILY IV 02/08/25 10:00 02/08/25 09:38 125 MLS/HR Polyethylene Glycol 17 gm DAILY PO 02/08/25 10:00 02/08/25 09:37 17 GM Albuterol 2.5 mg Q4HPRN PRN NEB 02/07/25 19:15 Ipratropium [place] 0.5 mg Q4HPRN PRN NEB 02/07/25 19:15 Sodium Chloride 1,000 ml @ 70 mls/hr [id number] IV 02/07/25 19:15 02/07/25 23:37 70 MLS/HR Ondansetron HCl 4 mg Q4HP PRN IV 02/07/25 19:15 Docusate Sodium 100 mg BIDPRN PRN PO 02/07/25 19:15 Morphine Sulfate 2 mg Q4HPRN PRN IV 02/07/25 19:15 Nitroglycerin 0.4 mg Q5MINP PRN SL 02/07/25 19:15 Acetaminophen 650 mg Q8HP PRN PO 02/08/25 03:45 02/08/25 09:49 650 MG Examination Constitutional: Patient was alert and oriented to time, place and person and does not appear to be in acute distress Gen - no pallor, no icterus, no cyanosis, no clubbing, no LAD, no edema . Skin - Patients skin is warm and dry. HEENT - normocephalic, atraumatic, moist mucous membranes. Neck - full ROM, no LAD, no JVD Pulmonary - B/L equal breath sounds, no crackles , no wheezing, no stridor. cardiovascular - normal S1,S2 heard. No added sounds, no murmurs heard. peripheral pulses normal radial 2+, pedal 2+. GI - soft abdomen. no hepatospleenomegaly. Vertical scar of below the umbilicus, no hernia seen, normoactive bowel sounds Neurological - Bilateral upper extremity strength 5/5, bilateral lower extremity strength 5/5, no facial droop, normal speech, no tremor, no sensory deficiets. laboratory and microbiology Laboratory Tests 02/08/25 05:24 Test 02/08/25 05:24 Range/Units Serum Glucose 119 H 74-106 mg/dL Problem List/Assessment/Plan Problem List/Assessment/Plan # Acute lower abdominal pain # Bilateral groin pain ?Bilateral hip osteoarthritis - patient did not have diarrhea or constipation - CT abdomen pelvis without contrast was grossly normal, moderate volume of colonic stool - on MiraLax - pending pelvic x-ray Solitary Pulmonary nodule ? 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 - QuantiFERON TB gold sent - pulmonology consulted - fungus culture with stain sent - patient on azithromycin - patient in isolation Goals of care discussed with the patient for over 25 minutes. Full code Plan discussed with Dr. Soares Plan discussed with: Patient My Orders My Orders Orders - MARCOS SPEAR Procedure Category Date Status Time Quantiferon-Tb Gold LAB 02/08/25 In Process 11:15 Date of Service: Feb 08, 2025 Billing Provider: BESSY SOARES MD Common Visit Codes: [id number] INP/OBS CARE(HIGH) MARCOS SPEAR RESIDENT Feb 08, 2025 18:39 BESSY SOARES MD Feb 10, 2025 11:09
--- NOTE | 2025-02-08 20:54 | DVHINCON2 ---
Date of service: Feb 07, 2025 Referring Physician KOSTAS Rascon Reason for Consultation Tree in bud opacities in CT Chest, ex-smoker History of Present Illness 84-year-old woman history of asthma, hernia repair, hysterectomy, tonsillectomy who presented with abdominal pain for the last two weeks. She had a CT chest performed that demonstrated tree-in-bud opacities. She was an ex-smoker. She states she was bouts of bronchitis every year. She was not have pulmonary function tests. Pulmonary consultation is called for evaluation of abnormal CT chest. Review of systems: 14 point review of systems is negative unless otherwise noted above. Past medical history: Asthma Past surgical history: Hernia repair, hysterectomy, tonsillectomy Medications: Reviewed. Allergies: No known drug allergies. Family history: No family history of premature CAD. No family history of lung disease. Social history: Nonsmoker. No alcohol or illicit drug use. Family History: FH: cancer G8 MOTHER FH: heart disease G8 FATHER Allergies: Coded Allergies: NO KNOWN ALLERGIES (Unverified , 09/10/23) Home Meds Reported Medications Albuterol Sulfate (Albuterol Sulfate Hfa) 108 Mcg/Act Aer, 2 PUFF PO Q6H 02/07/25 Fluticasone Propionate (Fluticasone Propionate Hf) 110 Mcg/Act Aer, 2 PUFF INH 02/07/25 Current Medications Current Medications Medications (Trade) Dose Ordered Sig/Dante Route PRN Reason Start Time Stop Time Status Last Admin Azithromycin 250 ml @ 125 mls/hr DAILY IV 02/08/25 10:00 02/08/25 09:38 Polyethylene Glycol (Miralax 17GM Powder) 17 gm DAILY PO 02/08/25 10:00 02/08/25 09:37 Acetaminophen (Tylenol Tablet) 650 mg Q8HP PRN PO PAIN SCALE 1-3 OR TEMP>100.4 02/08/25 03:45 02/08/25 20:33 Enoxaparin Sodium (Lovenox) 40 mg DAILY SC 02/09/25 10:00 Vital Signs Vital Signs Date Time Temp Pulse Resp B/P (MAP) Pulse Ox O2 Delivery O2 Flow Rate FiO2 02/08/25 20:33 98.0 02/08/25 19:31 95 Room Air 02/08/25 19:31 0 21 02/08/25 17:05 79 16 139/80 (99) Physical Exam Gen.: Patient lying in bed in no apparent distress. Breathing comfortably on room air. Head: Normocephalic, atraumatic Eyes: EOMI/PERRLA. Ears: Normal hearing. Normal anatomy. Neck/trachea: Trachea midline, supple. Nose: Normal external anatomy. Mouth: Moist mucous membranes. Chest: Fair air entry bilaterally. No wheezing or rhonchi. Cardio vascular: Positive S1, positive S2. Regular rate and rhythm. Abdomen: Positive bowel sounds in all 4 quadrants. Soft, non-tender, non- distended. : Deferred. Rectal: Deferred Skin: Warm, dry. Extremities: 2+ radial pulses bilaterally. No lower extremity edema. Neuro: Awake, alert, oriented x3. No gross motor or sensory deficits. Cranial nerves II through XII intact. Gait not assessed. Labs/Diagnostic Data Labs Test 02/08/25 13:43 02/08/25 05:24 02/07/25 19:16 02/07/25 13:39 Range/Units White Blood Count 8.5 4.4-10.8 10^3/uL Red Blood Count 4.33 4.0-5.20 10^6/uL Hemoglobin 13.4 12.2-16.2 g/dL Hematocrit 38.9 36.0-46.0 % Mean Corpuscular Volume 89.9 80.0-100.0 fL Mean Corpuscular Hemoglobin 30.9 28.0-32.0 pg Mean Corpuscular Hemoglobin Concent 34.4 32.0-36.0 g/dL Red Cell Distribution Width 14.7 H 11.8-14.3 % Platelet Count 222 140-450 10^3/uL Mean Platelet Volume 8.0 6.9-10.8 fL Neutrophils (%) (Auto) 53.9 37.0-80.0 % Lymphocytes (%) (Auto) 29.9 10.0-50.0 % Monocytes (%) (Auto) 11.5 0.0-12.0 % Eosinophils (%) (Auto) 3.7 0.0-7.0 % Basophils (%) (Auto) 1.0 0.0-2.0 % Neutrophils # (Auto) 4.6 1.6-8.6 10 ^3/uL Lymphocytes # (Auto) 2.5 0.4-5.4 10 ^3/uL Monocytes # (Auto) 1.0 0-1.3 10 ^3/uL Eosinophils # (Auto) 0.3 0-0.8 10 ^3/uL Basophils # (Auto) 0.1 0-0.2 10 ^3/uL Nucleated Red Blood Cells 0.0 % Sodium Level 141 136-145 mmol/L Potassium Level 4.5 3.5-5.1 mmol/L Chloride Level 107 98-107 mmol/L Carbon Dioxide Level 29 20-31 mmol/L Anion Gap 5 5-15 Blood Urea Nitrogen 15 9-23 mg/dL Creatinine 0.65 0.550-1.02 mg/dL Glomerular Filtration Rate Calc 87 >90 mL/min BUN/Creatinine Ratio 23.1 H 10.0-20.0 Serum Glucose 119 H 74-106 mg/dL Calcium Level 9.4 8.7-10.4 mg/dL Total Bilirubin 0.6 0.2-1.0 mg/dL Aspartate Amino Transferase (AST) 19 13-40 U/L Alanine Aminotransferase (ALT) 14 7-40 U/L Alkaline Phosphatase 123 H 46-116 U/L Total Protein 6.4 5.7-8.2 g/dL Albumin 3.9 3.2-4.8 g/dL Urine Color Light-yellow Yellow Urine Clarity Turbid H Clear Urine pH 7.0 5.0-9.0 Urine Specific [place] 1.012 1.001-1.035 Urine Protein Negative Negative Urine Ketones Negative Negative Urine Blood Negative Negative /uL Urine Nitrite Negative Negative Urine Bilirubin Negative Negative Urine Urobilinogen Normal Negative mg/dL Urine Leukocyte Esterase Negative Negative /uL Urine RBC 2 0 - 4 /hpf Urine Microscopic WBC < 1 0-5 /HPF Urine Squamous Epithelial Cells Few <5 /hpf Urine Bacteria Few H None Seen /hpf Urine Glucose Normal Normal mg/dL Test 02/07/25 12:48 Range/Units Lipase 26 12-53 U/L Assessment Impression: Acute intractable abdominal pain Acute tree-in-bud opacities and right middle lobes opacities Acute consultation Acute asthma Ex-smoker Pulmonary nodule Plan: CT chest report and images reviewed. Diffuse mild tree-in-bud opacities. Atypical versus inflammatory process. 0.5 nodule in the anterior right lung base. Lab results come On room air Recommend outpatient pulmonary function test Follow up QuantiFERON test Send sputum for Gram stain and culture Send sputum for fungal culture Follow up right lower extremity ultrasound Doppler. Continue antibiotics Continue bronchodilators as needed. Pain control Avoid over-sedation Incentive spirometry DVT prophylaxis Prognosis: Guarded given multiple comorbidities. Rest of plan per hospitalist and other consultants. Thank you KOSTAS Rascon for allowing me to participate in this patient's care. Further recommendations will depend on patient's clinical course. Please do not hesitate to contact me if you have any questions or concerns. This medical document was created using an electronic medical record system with [employer] dictation system. Although this document has been carefully reviewed, there may still be some phonetic and typographical errors. These areas are purely typographical due to imperfections of the software programs, and do not reflect any compromise in the patient's medical care. Plan discussed with: Patient, Other (DEPUTY HEAD) SIXTO JACOBO MD Feb 08, 2025 20:54
--- NOTE | 2025-02-08 20:55 | DVHPN2 ---
Progress Note - Dictate Date Seen: Feb 08, 2025 Medical Necessity Reason Pt with a Central, PICC or Fol: No Subjective Patient seen and examined at bedside. Breathing comfortably on room air. Overnight events reviewed. vital signs Vital Sign Date Time Temp Pulse Resp B/P (MAP) Pulse Ox O2 Delivery O2 Flow Rate FiO2 02/08/25 20:33 98.0 02/08/25 19:31 95 Room Air 02/08/25 19:31 0 21 02/08/25 17:05 79 16 139/80 (99) Total Intake and Output 02/07/25 02/07/25 02/08/25 15:00 23:00 07:00 Intake Total 250 ml Balance 250 ml medications Current Medications Medications Dose Ordered Sig/Dante Route Start Time Stop Time Status Last Admin Dose Admin Azithromycin 250 ml @ 125 mls/hr DAILY IV 02/08/25 10:00 02/08/25 09:38 Polyethylene Glycol 17 gm DAILY PO 02/08/25 10:00 02/08/25 09:37 Albuterol 2.5 mg Q4HPRN PRN NEB 02/07/25 19:15 Ipratropium [place] 0.5 mg Q4HPRN PRN NEB 02/07/25 19:15 Ondansetron HCl 4 mg Q4HP PRN IV 02/07/25 19:15 Docusate Sodium 100 mg BIDPRN PRN PO 02/07/25 19:15 Morphine Sulfate 2 mg Q4HPRN PRN IV 02/07/25 19:15 Nitroglycerin 0.4 mg Q5MINP PRN SL 02/07/25 19:15 Acetaminophen 650 mg Q8HP PRN PO 02/08/25 03:45 02/08/25 20:33 Enoxaparin Sodium 40 mg DAILY SC 02/09/25 10:00 objective Gen.: Patient lying in bed in no apparent distress. Breathing comfortably on room air. Head: Normocephalic, atraumatic Eyes: EOMI/PERRLA. Ears: Normal hearing. Normal anatomy. Neck/trachea: Trachea midline, supple. Nose: Normal external anatomy. Mouth: Moist mucous membranes. Chest: Fair air entry bilaterally. No wheezing or rhonchi. Cardio vascular: Positive S1, positive S2. Regular rate and rhythm. Abdomen: Positive bowel sounds in all 4 quadrants. Soft, non-tender, non- distended. : Deferred. Rectal: Deferred Skin: Warm, dry. Extremities: 2+ radial pulses bilaterally. No lower extremity edema. Neuro: Awake, alert, oriented x3. No gross motor or sensory deficits. Cranial nerves II through XII intact. Gait not assessed. laboratory and microbiology Laboratory Tests 02/08/25 05:24 Test 02/08/25 05:24 Range/Units Serum Glucose 119 H 74-106 mg/dL Assessment/Plan Impression: Acute intractable abdominal pain Acute tree-in-bud opacities and right middle lobe opacities Acute constipation Acute asthma Ex-smoker Pulmonary nodule Cough Events: Remains on room air Supplemental oxygen PRN Complete antibiotic course MiraLax for constipation. Patient is stable for discharge from the pulmonary standpoint. Follow up in 1-2 weeks in Pulmonary Clinic. Labs and imaging reviewed. Rest of plan as noted below. Plan: CT chest report and images reviewed. Diffuse mild tree-in-bud opacities. Atypical versus inflammatory process. 0.5 nodule in the anterior right lung base. Lab results come On room air Recommend outpatient pulmonary function test Follow up QuantiFERON test Send sputum for Gram stain and culture Send sputum for fungal culture Right lower extremity ultrasound Doppler revealed no e/o DVT. Continue antibiotics Continue bronchodilators as needed. Pain control Avoid over-sedation Incentive spirometry DVT prophylaxis Prognosis: Guarded given multiple comorbidities. Rest of plan per hospitalist and other consultants. Thank you KOSTAS Rascon for allowing me to participate in this patient's care. Further recommendations will depend on patient's clinical course. Please do not hesitate to contact me if you have any questions or concerns. This medical document was created using an electronic medical record system with [employer] dictation system. Although this document has been carefully reviewed, there may still be some phonetic and typographical errors. These areas are purely typographical due to imperfections of the software programs, and do not reflect any compromise in the patient's medical care. Plan discussed with: Patient, Other (RN) SIXTO JACOBO MD Feb 08, 2025 20:55
[2025-02-09] VITALS (7 sets, daily range): BP systolic 112–156; BP diastolic 64–78; PULSE 67–96; RESP 16–19; TEMP 97.3–98.5; O2SAT 93–98
[2025-02-09 05:44] LABS: Basophils # (auto) 0 10 ^3/uL (0-0.2); Basophils % (auto) 0.5 % (0.0-2.0); Eosinophils # (auto) 0.3 10 ^3/uL (0-0.8); Eosinophils % (auto) 4.3 % (0.0-7.0); Hematocrit 38.2 % (36.0-46.0); Lymphocytes # (auto) 1.8 10 ^3/uL (0.4-5.4); Lymphocytes % (auto) 29.5 % (10.0-50.0); Mean Corpuscular Hemoglobin 30.6 pg (28.0-32.0); Mean Corpuscular Hgb Conc. 34.1 g/dL (32.0-36.0); Mean Corpuscular Volume 89.7 fL (80.0-100.0); Monocytes # (auto) 0.8 10 ^3/uL (0-1.3); Neutrophils # (auto) 3.2 10 ^3/uL (1.6-8.6); Neutrophils % (auto) 52.7 % (37.0-80.0); Platelet Count (auto) 203 10^3/uL (140-450); Red Blood Cells 4.26 10^6/uL (4.0-5.20); Red Cell Distribution Width 14.4 % (11.8-14.3)
[2025-02-09 05:48] LABS: Anion Gap 6 (5-15); Carbon Dioxide 29 mmol/L (20-31); Chloride 105 mmol/L (98-107); Potassium 4.4 mmol/L (3.5-5.1); Sodium 140 mmol/L (136-145)
[2025-02-09 05:49] LABS: Calcium 9.4 mg/dL (8.7-10.4)
[2025-02-09 05:54] LABS: BUN/Creatinine Ratio 20.3 (10.0-20.0); Blood Urea Nitrogen 12 mg/dL (9-23)
[2025-02-09 05:55] LABS: Glucose 127 mg/dL (74-106)
--- NOTE | 2025-02-09 09:22 | DVH ---
CLINICAL INDICATION: PAIN TECHNIQUE: 1 radiographic views of the PELVIS AND 2 VIEWS OF THE LEFT HIP were obtained. Comparison: None FINDINGS/IMPRESSION: There is no evidence of acute fracture or dislocation. MODERATE OSTEOARTHROSIS OF THE FEMOROACETABULAR JOINT.
--- NOTE | 2025-02-09 09:22 | DVH ---
CLINICAL INDICATION: pain TECHNIQUE: 1 radiographic views of the right hand were obtained. Comparison: None FINDINGS/IMPRESSION: There is no evidence of acute fracture or dislocation. The visualized joint space is well maintained. The alignment is anatomical. There is no radiopaque foreign body.
[2025-02-09] MEDS: ENOXAPARIN SOD 40 MG/0.4 ML SYRINGE SC SCH (11:13)
[2025-02-09] MEDS ORDERED: FLUC200T50 PO (14:01)
--- NOTE | 2025-02-09 18:01 | DVHDSRES ---
Discharge Summary Date of Admission Resident Creating Document: MARCOS SPEAR RESIDENT Feb 07, 2025 at 19:01 Date of Discharge: Feb 09, 2025 Admitting Diagnosis acute intractable abdominal pain acute tree in bud nodules of lungs and right mid lob nodule infection vs inflammatory (pt denies any hx of TB) acute constipation acute right leg pain chronic problems Wounds: none Labs/Diagnostic Data: Laboratory Results Test 02/09/25 07:10 02/09/25 05:14 02/08/25 13:43 02/08/25 05:24 Miscellaneous Referred Test (Refrg) Sent to [facility] White Blood Count 6.0 10^3/uL (4.4-10.8) Red Blood Count 4.26 10^6/uL (4.0-5.20) Hemoglobin 13.0 g/dL (12.2-16.2) Hematocrit 38.2 % (36.0-46.0) Mean Corpuscular Volume 89.7 fL (80.0-100.0) Mean Corpuscular Hemoglobin 30.6 pg (28.0-32.0) Mean Corpuscular Hemoglobin Concent 34.1 g/dL (32.0-36.0) Red Cell Distribution Width 14.4 % (11.8-14.3) Platelet Count 203 10^3/uL (140-450) Mean Platelet Volume 8.1 fL (6.9-10.8) Neutrophils (%) (Auto) 52.7 % (37.0-80.0) Lymphocytes (%) (Auto) 29.5 % (10.0-50.0) Monocytes (%) (Auto) 13.0 % (0.0-12.0) Eosinophils (%) (Auto) 4.3 % (0.0-7.0) Basophils (%) (Auto) 0.5 % (0.0-2.0) Neutrophils # (Auto) 3.2 10 ^3/uL (1.6-8.6) Lymphocytes # (Auto) 1.8 10 ^3/uL (0.4-5.4) Monocytes # (Auto) 0.8 10 ^3/uL (0-1.3) Eosinophils # (Auto) 0.3 10 ^3/uL (0-0.8) Basophils # (Auto) 0 10 ^3/uL (0-0.2) Nucleated Red Blood Cells 0.0 % Sodium Level 140 mmol/L (136-145) Potassium Level 4.4 mmol/L (3.5-5.1) Chloride Level 105 mmol/L (98-107) Carbon Dioxide Level 29 mmol/L (20-31) Anion Gap 6 (5-15) Blood Urea Nitrogen 12 mg/dL (9-23) Creatinine 0.59 mg/dL (0.550-1.02) Glomerular Filtration Rate Calc 89 mL/min (>90) BUN/Creatinine Ratio 20.3 (10.0-20.0) Serum Glucose 127 mg/dL (74-106) Calcium Level 9.4 mg/dL (8.7-10.4) Total Bilirubin 0.6 mg/dL (0.2-1.0) Aspartate Amino Transferase (AST) 19 U/L (13-40) Alanine Aminotransferase (ALT) 14 U/L (7-40) Alkaline Phosphatase 123 U/L (46-116) Total Protein 6.4 g/dL (5.7-8.2) Albumin 3.9 g/dL (3.2-4.8) Test 02/07/25 19:16 02/07/25 13:39 02/07/25 12:48 Urine Color Light-yellow (Yellow) Urine Clarity Turbid (Clear) Urine pH 7.0 (5.0-9.0) Urine Specific [place] 1.012 (1.001-1.035) Urine Protein Negative (Negative) Urine Ketones Negative (Negative) Urine Blood Negative /uL (Negative) Urine Nitrite Negative (Negative) Urine Bilirubin Negative (Negative) Urine Urobilinogen Normal mg/dL (Negative) Urine Leukocyte Esterase Negative /uL (Negative) Urine RBC 2 /hpf (0 - 4) Urine Microscopic WBC < 1 /HPF (0-5) Urine Squamous Epithelial Cells Few /hpf (<5) Urine Bacteria Few /hpf (None Seen) Urine Glucose Normal mg/dL (Normal) Lipase 26 U/L (12-53) Other Laboratory Tests 02/09/25 05:14 Brief Hx & Hospital Course: HPI Patient is a 84-year-old female with a past medical history of asthma, bronchitis presented to the ED with a chief complaint of abdominal pain. Patient reports that since the last 2 weeks she has been having worsening bilateral groin pain and it has been difficult for her to walk and move around. Patient denies any dysuria, hematuria, flank pain, nausea or vomiting, diarrhea or constipation. Patient denied shortness of breath, chest pain, palpitations. Patient was also reported that she noticed swelling bulging out from the lower abdomen and she was concerned for having a hernia. Past medical history: Asthma, bronchitis Past surgical history: Social history: Patient was with family and denies smoking, alcohol, drug use Home medications: Albuterol inhaler as needed Brief hospital course & discharge plan Patient presented to the hospital with chief complaint of abdominal pain which was in the lower abdomen and associated with difficulty to walk. In the ER CT abdomen pelvis was done which showed moderate volume colonic stool, tree-in-bud nodularity in the lung bases which may be infectious or inflammatory. CT chest abdomen pelvis was done which showed similar findings at a 0.5 cm nodule in the right middle lobe. Patient did not report any history of recent travel but reported that she has a large family in the [facility] and [place] and someone may have tuberculosis. QuantiFERON gold test was sent and sputum fungal cultures were sent. Pulmonology were consulted and as the patient did not have active symptoms and low suspicion for Tuberculosis, patient was sent home and was advised to follow up at the pulmonology outpatient clinic as scheduled for the results of the QuantiFERON gold and sputum culture. We will also follow the result of the same. Patient was sent home on fluconazole 200mg bid for 10 days and will be followed up in the clinic. Consults/Reason for consult Pulmonology consultation for abnormal CT findings Operations or Procedures CT abdomen pelvis without contrast Findings: Evaluation of solid organs is limited due to lack of intravenous contrast use. Lung Bases: 0.5 cm nodule in the right middle lobe. Tree-in-bud nodularity at the bilateral lung bases. Cardiomegaly. Coronary artery calcifications. Vascular calcifications of the aorta. Liver: The liver is normal in size. No focal lesions. Gallbladder and Biliary Tree: Unremarkable Spleen: Unremarkable Pancreas: The pancreas is grossly normal in appearance. Adrenal Glands: Unremarkable Kidneys: Kidneys are grossly normal without calculi or hydronephrosis. Bladder: Grossly unremarkable for degree of distention. Bowel: The stomach is grossly normal in appearance. Moderate volume colonic stool. The appendix is not visualized; however, no secondary findings of acute appendicitis identified. Ascites: Absent Lymphadenopathy: No mesenteric, retroperitoneal or periportal lymphadenopathy. Abdominal Wall and Mesentery: Unremarkable. Vasculature: The visualized abdominal aorta is normal in size and caliber. Evaluation of abdominal and pelvic vessels is limited due to lack of intravenous contrast. Pelvic Organs: Unremarkable Musculoskeletal: No aggressive focal bony lesions, acute fractures or dislocation. Multilevel degenerative changes of the spine. Chronic appearing compression fractures of L4 and L1. IMPRESSION: Tree-in-bud nodularity is present in the lung bases which may be infectious or inflammatory. Indeterminate 0.5 cm nodule in the right middle lobe. Moderate volume diffuse colonic stool. Fleischner Society pulmonary nodule recommendations (2017): Single solid nodule <6 mm Low-risk patients: no routine follow-up required High-risk patients: optional CT at 12 months (particularly with suspicious nodule morphology and/or upper lobe location) CT chest abdomen pelvis with IV contrast Findings: Lung Bases: 0.5 cm nodule in the anterior right lung base (image 42/54). Diffuse tree-in-bud nodularity in the lungs may represent atypical infectious or inflammatory process. Liver: The liver is normal in size. No focal lesions. Normal hepatic vascular enhancement. Gallbladder and Biliary Tree: Unremarkable Spleen: Unremarkable Pancreas: The pancreas is normal in appearance without focal lesions or abnormal enhancement. Adrenal Glands: Unremarkable Kidneys: No hydronephrosis. Bladder: Unremarkable Bowel: The stomach is grossly normal in appearance. Small bowel and colon are normal in caliber and distribution. The appendix is not visualized; however, no secondary findings of acute appendicitis identified. Ascites: Absent Lymphadenopathy: No mesenteric, retroperitoneal or periportal lymphadenopathy. Abdominal Wall and Mesentery: Unremarkable. Vasculature: The visualized abdominal aorta is normal in size and caliber. Abdominal and pelvic vessels demonstrate normal enhancement. Pelvic Organs: Unremarkable Musculoskeletal: No aggressive focal bony lesions, acute fractures or dislocation. Chronic appearing compression fracture of L4 and L1. IMPRESSION: Diffuse mild tree in bud nodularity is nonspecific but may represent atypical infectious or inflammatory process. 0.5 cm nodule in the anterior right lung base. No acute finding involving the abdomen or pelvis. Fleischner Society pulmonary nodule recommendations (2017): Single solid nodule <6 mm Low-risk patients: no routine follow-up required High-risk patients: optional CT at 12 months (particularly with suspicious nodule morphology and/or upper lobe location) Solitary solid nodule 6-8 mm Low-risk patients: CT at 6-12 months, then consider CT at 18-24 months High-risk patients: CT at 6-12 months, then CT at 18-24 months Solitary solid nodule >8 mm (>250 mm3) Low-risk and high-risk patients: consider CT at 3 months, PET/CT, or tissue sampling Multiple solid nodules <6 mm Low-risk patients: no routine follow-up required High-risk patients: optional CT at 12 months Multiple solid nodules >6 mm Low-risk patients: CT at 3-6 months, then consider CT at 18-24 months High-risk patients: CT at 3-6 months, then CT at 18-24 months When multiple nodules are present, the most suspicious nodule should guide further individualized management. Solitary groundglass opacities < 6 mm require no follow-up Multiple groundglass opacities < 6 mm: CT 3-6 months. If stable consider CT at 2 , and 4 years Groundglass opacities >6 mm: follow-up in 6-12 months and then every 2 years for 5 years. Groundglass opacities greater than 6 mm with part solid component follow-up CT in 3-6 months to confirm persistence. If unchanged and solid component remains less than [address] for 5 years Multiple groundglass opacities greater than 6 mm: CT at 3-6 months. Subsequent management based on the most suspicious nodules. These recommendations do not necessarily apply to women, patients with immunosuppression or a prior history of cancer, patients with multiple nodules that are suspicious for metastasis or infection, or patients with mediastinal lymphadenopathy or pleural effusion in whom cancer is strongly suspected. Condition at Discharge: Good Final Diagnosis/Problems List # Acute lower abdominal pain # Bilateral groin pain ?Bilateral hip osteoarthritis # Solitary Pulmonary nodule # ?lung infection likely fungal infection, low suspicion for TB Discharge Disposition: Home Discharge Instruct/Medications Diet: Regular Activity: Light activity Follow Up/Referral: Follow up with the pulmonology in the outpatient clinic in [address] Tavarez for results of the QuantiFERON, respiratory fungal culture and further workup of CT chest findings Medications: as per EMR Discharge Statement: "Patient was advised to return to the ER or call 911 if any headaches, dizziness, shortness of breath, chest pain, abdominal pain, bleeding, fevers, or worsening of medical condition. Patient was counseled about treatment plan, medications, possible side effects, patientverbalized understanding. All questions were answered to the best of my ability. This discharge took greater then 30 minutes in planning, reviewing documentation, counseling the patient, and discussing with other team members." ASSESSMENT ASSESSMENT Assessment # Acute lower abdominal pain # Bilateral groin pain ?Bilateral hip osteoarthritis # Solitary Pulmonary nodule # ?lung infection likely fungal infection, low suspicion for TB Date of Service: Feb 09, 2025 Billing Provider: BESSY SOARES MD Common Visit Codes: 65298-WTI/OBS DISCH DAY >30min MARCOS SPEAR RESIDENT Feb 09, 2025 18:01 BESSY SOARES MD Feb 10, 2025 11:24
--- NOTE | 2025-02-09 22:00 | DVHINCON2 ---
Date of service: Feb 07, 2025 Family History: FH: cancer G8 MOTHER FH: heart disease G8 FATHER Allergies: Coded Allergies: NO KNOWN ALLERGIES (Unverified , 09/10/23) Home Meds Active Scripts Fluconazole (Fluconazole) 200 Mg Tab, 200 MG PO BID for 10 Days, #20 TAB 0 Refills Prov:MARCOS SPEAR RESIDENT 02/09/25 Reported Medications Albuterol Sulfate (Albuterol Sulfate Hfa) 108 Mcg/Act Aer, 2 PUFF PO Q6H 02/07/25 Fluticasone Propionate (Fluticasone Propionate Hf) 110 Mcg/Act Aer, 2 PUFF INH 02/07/25 Current Medications Current Medications Medications (Trade) Dose Ordered Sig/Dante Route PRN Reason Start Time Stop Time Status Last Admin Enoxaparin Sodium (Lovenox) 40 mg DAILY SC 02/09/25 10:00 02/09/25 17:08 DC 02/09/25 11:13 Vital Signs Vital Signs Date Time Temp Pulse Resp B/P (MAP) Pulse Ox O2 Delivery O2 Flow Rate FiO2 02/09/25 16:36 97.5 79 16 112/67 (82) 96 97.5 02/09/25 08:00 Room Air* 0 21 Labs/Diagnostic Data Labs Test 02/09/25 07:10 02/09/25 05:14 02/08/25 13:43 02/08/25 05:24 Range/Units Miscellaneous Referred Test (Refrg) Sent to [facility] White Blood Count 6.0 # 4.4-10.8 10^3/uL Red Blood Count 4.26 4.0-5.20 10^6/uL Hemoglobin 13.0 12.2-16.2 g/dL Hematocrit 38.2 36.0-46.0 % Mean Corpuscular Volume 89.7 80.0-100.0 fL Mean Corpuscular Hemoglobin 30.6 28.0-32.0 pg Mean Corpuscular Hemoglobin Concent 34.1 32.0-36.0 g/dL Red Cell Distribution Width 14.4 H 11.8-14.3 % Platelet Count 203 140-450 10^3/uL Mean Platelet Volume 8.1 6.9-10.8 fL Neutrophils (%) (Auto) 52.7 37.0-80.0 % Lymphocytes (%) (Auto) 29.5 10.0-50.0 % Monocytes (%) (Auto) 13.0 H 0.0-12.0 % Eosinophils (%) (Auto) 4.3 0.0-7.0 % Basophils (%) (Auto) 0.5 0.0-2.0 % Neutrophils # (Auto) 3.2 1.6-8.6 10 ^3/uL Lymphocytes # (Auto) 1.8 0.4-5.4 10 ^3/uL Monocytes # (Auto) 0.8 0-1.3 10 ^3/uL Eosinophils # (Auto) 0.3 0-0.8 10 ^3/uL Basophils # (Auto) 0 0-0.2 10 ^3/uL Nucleated Red Blood Cells 0.0 % Sodium Level 140 136-145 mmol/L Potassium Level 4.4 3.5-5.1 mmol/L Chloride Level 105 98-107 mmol/L Carbon Dioxide Level 29 20-31 mmol/L Anion Gap 6 5-15 Blood Urea Nitrogen 12 9-23 mg/dL Creatinine 0.59 0.550-1.02 mg/dL Glomerular Filtration Rate Calc 89 >90 mL/min BUN/Creatinine Ratio 20.3 H 10.0-20.0 Serum Glucose 127 H 74-106 mg/dL Calcium Level 9.4 8.7-10.4 mg/dL Total Bilirubin 0.6 0.2-1.0 mg/dL Aspartate Amino Transferase (AST) 19 13-40 U/L Alanine Aminotransferase (ALT) 14 7-40 U/L Alkaline Phosphatase 123 H 46-116 U/L Total Protein 6.4 5.7-8.2 g/dL Albumin 3.9 3.2-4.8 g/dL Test 02/07/25 19:16 02/07/25 13:39 02/07/25 12:48 Range/Units Urine Color Light-yellow Yellow Urine Clarity Turbid H Clear Urine pH 7.0 5.0-9.0 Urine Specific [place] 1.012 1.001-1.035 Urine Protein Negative Negative Urine Ketones Negative Negative Urine Blood Negative Negative /uL Urine Nitrite Negative Negative Urine Bilirubin Negative Negative Urine Urobilinogen Normal Negative mg/dL Urine Leukocyte Esterase Negative Negative /uL Urine RBC 2 0 - 4 /hpf Urine Microscopic WBC < 1 0-5 /HPF Urine Squamous Epithelial Cells Few <5 /hpf Urine Bacteria Few H None Seen /hpf Urine Glucose Normal Normal mg/dL Lipase 26 12-53 U/L Problems(with codes): (1) Atypical pneumonia (2) ACS (acute coronary syndrome) (3) Intractable abdominal pain Plan/Recommendation ASSESSMENT AND PLAN: ID Problem List: - Abdominal pain - Constipation - Asthma COPD - Hypoxia - Pulmonary nodules - Smoking history Assessment This is an 84-year-old female with a past medical history of asthma, COPD, and a significant smoking history (quit six years ago), who presents with two weeks of severe abdominal pain. The pain is localized to the right flank, described as a burning sensation, and is associated with mild abdominal distension. She denies fevers, chills, rash, diarrhea, or vomiting. Her last bowel movement was over 24 hours ago. Vital signs are notable for an oxygen saturation of 91% on room air. Physical examination reveals bilateral crackles in the lungs and guarding with rebound tenderness in the right upper quadrant of the abdomen. Laboratory studies show hemoglobin 13.8, platelet count 323,000, sodium 140, BUN 16, creatinine 0.72, AST 16, ALT 22, and lipase 26. Urinalysis shows few bacteria and squamous epithelial cells, with no pyuria or nitrites. Imaging findings include: - Bilateral basal lung opacities suggestive of atypical pneumonia. - An indeterminate 0.5 cm nodule in the right middle lobe. - A single solid pulmonary nodule less than 6 mm. - Scattered diffuse chronic scarring. A Doppler ultrasound of the right lower extremity showed no deep vein thrombosis. Plan: - Abdominal pain and constipation: - Initiate a bowel regimen to alleviate constipation, which is suspected to be contributing to the abdominal pain. - Pulmonary findings: - Recommend a chest CT scan for further evaluation of pulmonary nodules. - No empiric antifungal therapy is warranted at this time due to low risk for fungal pneumonia. - Obtain sputum cultures and blood cultures to assess for infectious etiology. - Hypoxia: - Monitor oxygen saturation and provide supplemental oxygen as needed. - Asthma and COPD: - Continue current inhaler regimen and monitor respiratory status. - Smoking history: - Acknowledge cessation six years ago; no intervention needed at this time. Isolation Precautions: Standard Assessment and plan were discussed with the patient as written above. Plan is subject to change pending incorporation of new incoming information and diagnostics. Updates may be added as an addendum at the bottom (or top) of this note. Thank you for the consult. I will continue to follow. Please contact me with any questions or concerns. Flex Friedman MD History: The patient's chart and medications were reviewed in detail, and the patient was seen and examined. History obtained from: Patient HPI: Carol Ann Navarrete is an 84-year-old female with a past medical history of asthma, COPD, significant smoking history (quit six years ago), history of hernia repair, hysterectomy, and tonsillectomy. She presents with a two-week history of severe abdominal pain. The pain is located in the right flank, described as a burning sensation, and accompanied by mild abdominal distension. She denies fevers, chills, rash, diarrhea, or vomiting. Her last bowel movement was over 24 hours ago. Review of Systems: A complete 10-system review of systems was completed and is negative except as noted in the HPI or below. - CONSTITUTIONAL: Denies weight loss, fever, and chills. - HEENT: Denies changes in vision and hearing. - RESPIRATORY: Denies shortness of breath and cough. - CV: Denies palpitations and chest pain. - GI: Reports abdominal pain and mild distension. Denies nausea, vomiting, and diarrhea. - : Denies dysuria and urinary frequency. - MSK: Denies myalgia and joint pain. - SKIN: Denies rash and pruritus. - NEUROLOGICAL: Denies headache and syncope. - PSYCHIATRIC: Denies recent changes in mood, anxiety, and depression. Past Medical History: - Asthma COPD - Smoking history (quit six years ago) Past Surgical History: - Hernia repair (several years ago) - Hysterectomy - Tonsillectomy (remote) Home Medications: [Home medications not provided.] Allergies: - No known drug allergies Family History: [Family history not provided.] Social History: - Marital status: Not provided - Tobacco use: Former smoker; quit six years ago - Alcohol use: Denies - Illicit drug use: Denies - Occupational history: Not provided Objective: Vital Signs on Arrival: - Temperature: 98.0 F - Blood Pressure: 143/84 mmHg - Pulse: 87 bpm - Respiratory Rate: 18 breaths per minute - SpO?: 91% on room air Most Recent Vital Signs: [Not provided.] Admission Weight: - Weight: Not provided - BMI: Not provided Physical Exam: - General: No acute distress - Neck: Supple; no masses HEENT: - Pupils equal, round, reactive to light - Normal lids and conjunctiva - Moist mucous membranes - Oropharynx without lesions, exudates, or excessive erythema - Normal appearance of the external nose and ears - Heart: Regular rhythm, normal rate; no murmurs; no lower extremity edema - Lungs: Crackles heard bilaterally - Abdomen: Soft; tenderness with guarding and rebound tenderness in the right upper quadrant; non-distended; no masses or abdominal hernia - Musculoskeletal: No digital cyanosis; normal strength and tone in all four limbs - Skin: Warm and dry; no rashes - Neurological: Alert; no facial droop or slurred speech; extraocular movements intact; sensation intact to soft touch in all four limbs - Psychiatric: Appropriate mood; full affect; oriented to person, place, time, and situation Lines: - Active Lines: None Diagnostic Studies: Available diagnostic studies were reviewed personally. Significant relevant results and findings are outlined below or addressed in the Assessment and Plan above. Pertinent Imaging: - Chest Imaging: - Bilateral basal lung opacities suggestive of atypical pneumonia - Indeterminate 0.5 cm nodule in the right middle lobe - Single solid pulmonary nodule less than 6 mm - Scattered diffuse chronic scarring - Doppler Ultrasound of Right Lower Extremity: - No deep vein thrombosis in the right femoral vein Laboratory Results: - Complete Blood Count: - Hemoglobin: 13.8 g/dL - Platelet count: 323,000/L - [White blood cell count not provided] - Basic Metabolic Panel: - Sodium: 140 mmol/L - BUN: 16 mg/dL - Creatinine: 0.72 mg/dL - Liver Function Tests: AST: 16 U/L ALT: 22 U/L - Lipase: 26 U/L - Urinalysis: - Few bacteria - Few squamous epithelial cells - No pyuria - No nitrites Plan discussed with: Patient FLEX FRIEDMAN MD Feb 09, 2025 22:00
--- NOTE | 2025-02-09 23:12 | DVHPN2 ---
Progress Note - Dictate Date Seen: Feb 09, 2025 Medical Necessity Reason Pt with a Central, PICC or Fol: No Subjective Patient seen and examined at bedside. Breathing comfortably on room air. Overnight events reviewed. vital signs Vital Sign Date Time Temp Pulse Resp B/P (MAP) Pulse Ox O2 Delivery O2 Flow Rate FiO2 02/09/25 16:36 97.5 79 16 112/67 (82) 96 97.5 02/09/25 08:00 Room Air* 0 21 Total Intake and Output 02/08/25 02/08/25 02/09/25 15:00 23:00 07:00 Intake Total 250 ml 2240 ml 1250 ml Output Total 175 ml Balance 250 ml 2240 ml 1075 ml objective Gen.: Patient lying in bed in no apparent distress. Breathing comfortably on room air. Head: Normocephalic, atraumatic Eyes: EOMI/PERRLA. Ears: Normal hearing. Normal anatomy. Neck/trachea: Trachea midline, supple. Nose: Normal external anatomy. Mouth: Moist mucous membranes. Chest: Fair air entry bilaterally. No wheezing or rhonchi. Cardio vascular: Positive S1, positive S2. Regular rate and rhythm. Abdomen: Positive bowel sounds in all 4 quadrants. Soft, non-tender, non- distended. : Deferred. Rectal: Deferred Skin: Warm, dry. Extremities: 2+ radial pulses bilaterally. No lower extremity edema. Neuro: Awake, alert, oriented x3. No gross motor or sensory deficits. Cranial nerves II through XII intact. Gait not assessed. laboratory and microbiology Laboratory Tests 02/09/25 05:14 Test 02/09/25 05:14 Range/Units Serum Glucose 127 H 74-106 mg/dL Assessment/Plan Impression: Acute intractable abdominal pain Acute tree-in-bud opacities and right middle lobe opacities Acute constipation Acute asthma Ex-smoker Pulmonary nodule Cough Events: Remains on room air Supplemental oxygen PRN Complete antibiotic course Complete Diflucan course. Follow up QuantiFERON. MiraLax for constipation. Patient is stable for discharge from the pulmonary standpoint. Follow up in 1-2 weeks in Pulmonary Clinic. Recommend complete PFTs as outpatient. Labs and imaging reviewed. Rest of plan as noted below. Plan: CT chest report and images reviewed. Diffuse mild tree-in-bud opacities. Atypical versus inflammatory process. 0.5 nodule in the anterior right lung base. Lab results come On room air Recommend outpatient pulmonary function test Follow up QuantiFERON test Send sputum for Gram stain and culture Send sputum for fungal culture Right lower extremity ultrasound Doppler revealed no e/o DVT. Continue antibiotics Continue bronchodilators as needed. Pain control Avoid over-sedation Incentive spirometry DVT prophylaxis Prognosis: Guarded given multiple comorbidities. Rest of plan per hospitalist and other consultants. Thank you KOSTAS Rascon for allowing me to participate in this patient's care. Further recommendations will depend on patient's clinical course. Please do not hesitate to contact me if you have any questions or concerns. This medical document was created using an electronic medical record system with [employer] dictation system. Although this document has been carefully reviewed, there may still be some phonetic and typographical errors. These areas are purely typographical due to imperfections of the software programs, and do not reflect any compromise in the patient's medical care. Plan discussed with: Patient, Other (RN/Dr. Flaherty) SIXTO JACOBO MD Feb 09, 2025 23:12
--- NOTE | 2025-02-10 23:37 | DVHPN2 ---
Consult Progress Note Date Seen: Feb 08, 2025 Subjective Patient reports: Other Objective vital signs Vital Sign Date Time Temp Pulse Resp B/P (MAP) Pulse Ox O2 Delivery O2 Flow Rate FiO2 02/09/25 16:36 97.5 79 16 112/67 (82) 96 97.5 02/09/25 08:00 Room Air* 0 21 Total Intake and Output 02/09/25 02/09/25 02/10/25 15:00 23:00 07:00 Intake Total 1450 ml Balance 1450 ml medications Physical Exam: - General: No acute distress - Neck: Supple; no masses HEENT: - Pupils equal, round, reactive to light - Normal lids and conjunctiva - Moist mucous membranes - Oropharynx without lesions, exudates, or excessive erythema - Normal appearance of the external nose and ears - Heart: Regular rhythm, normal rate; no murmurs; no lower extremity edema - Lungs: Crackles heard bilaterally - Abdomen: Soft; tenderness with guarding and rebound tenderness in the right upper quadrant; non-distended; no masses or abdominal hernia - Musculoskeletal: No digital cyanosis; normal strength and tone in all four limbs - Skin: Warm and dry; no rashes - Neurological: Alert; no facial droop or slurred speech; extraocular movements intact; sensation intact to soft touch in all four limbs - Psychiatric: Appropriate mood; full affect; oriented to person, place, time, and situation laboratory and microbiology Laboratory Tests 02/09/25 05:14 Test 02/09/25 05:14 Range/Units Serum Glucose 127 H 74-106 mg/dL Problem List/Assessment/Plan Problems(with codes): (1) COPD (chronic obstructive pulmonary disease) (2) Intractable abdominal pain (3) Atypical pneumonia (4) ACS (acute coronary syndrome) Problem List/Assessment/Plan ID Problem List: - Abdominal pain - Constipation - Asthma COPD - Hypoxia - Pulmonary nodules - Smoking history Assessment This is an 84-year-old female with a past medical history of asthma, COPD, and a significant smoking history (quit six years ago), who presents with two weeks of severe abdominal pain. The pain is localized to the right flank, described as a burning sensation, and is associated with mild abdominal distension. She denies fevers, chills, rash, diarrhea, or vomiting. Her last bowel movement was over 24 hours ago. Vital signs are notable for an oxygen saturation of 91% on room air. Physical examination reveals bilateral crackles in the lungs and guarding with rebound tenderness in the right upper quadrant of the abdomen. Laboratory studies show hemoglobin 13.8, platelet count 323,000, sodium 140, BUN 16, creatinine 0.72, AST 16, ALT 22, and lipase 26. Urinalysis shows few bacteria and squamous epithelial cells, with no pyuria or nitrites. Imaging findings include: - Bilateral basal lung opacities suggestive of atypical pneumonia. - An indeterminate 0.5 cm nodule in the right middle lobe. - A single solid pulmonary nodule less than 6 mm. - Scattered diffuse chronic scarring. A Doppler ultrasound of the right lower extremity showed no deep vein thrombosis. 3/26L continues to be hypoxic on room air at 92% , CT abdomen and pelvis shows a mild diffuse trim blood nodularity non specific and may represent atypic inflammatory process 0.5 nodule in the right anterior lung base Plan: - Continue Azithromycin if hypoxia improves in next 24-28 hours can discharge without any additional antibiotic therapy - recommend sputum and blood cultures - recommend lesionella urinary antigen - recommend cocci antibody bidda D , glucan and aspergillus fungal serologies and can follow these as outpatient - Abdominal pain and constipation: - Initiate a bowel regimen to alleviate constipation, which is suspected to be contributing to the abdominal pain. - Pulmonary findings: - No empiric antifungal therapy is warranted at this time due to low risk for fungal pneumonia. - Obtain sputum cultures and blood cultures to assess for infectious etiology. - Hypoxia: - Monitor oxygen saturation and provide supplemental oxygen as needed. - Asthma and COPD: - Continue current inhaler regimen and monitor respiratory status. - Smoking history: - Acknowledge cessation six years ago; no intervention needed at this time. Isolation Precautions: Standard Plan discussed with: FLEX Valente MD Feb 10, 2025 23:37
--- NOTE | 2025-02-10 23:47 | DVHPN2 ---
Consult Progress Note Date Seen: Feb 09, 2025 Subjective Patient reports: Other (having multiple bowel movements throught the day at least 3-4 , responding to new bowel regimen , submitted a sputum sample and test is pending , hypoxia appears to be imrpoving ) Objective vital signs Vital Sign Date Time Temp Pulse Resp B/P (MAP) Pulse Ox O2 Delivery O2 Flow Rate FiO2 02/09/25 16:36 97.5 79 16 112/67 (82) 96 97.5 02/09/25 08:00 Room Air* 0 21 Total Intake and Output 02/09/25 02/09/25 02/10/25 15:00 23:00 07:00 Intake Total 1450 ml Balance 1450 ml medications Physical Exam: - General: No acute distress - Neck: Supple; no masses HEENT: - Pupils equal, round, reactive to light - Normal lids and conjunctiva - Moist mucous membranes - Oropharynx without lesions, exudates, or excessive erythema - Normal appearance of the external nose and ears - Heart: Regular rhythm, normal rate; no murmurs; no lower extremity edema - Lungs: Crackles heard bilaterally - Abdomen: Soft; tenderness with guarding and rebound tenderness in the right upper quadrant; non-distended; no masses or abdominal hernia - Musculoskeletal: No digital cyanosis; normal strength and tone in all four limbs - Skin: Warm and dry; no rashes - Neurological: Alert; no facial droop or slurred speech; extraocular movements intact; sensation intact to soft touch in all four limbs - Psychiatric: Appropriate mood; full affect; oriented to person, place, time, and situation laboratory and microbiology Laboratory Tests 02/09/25 05:14 Test 02/09/25 05:14 Range/Units Serum Glucose 127 H 74-106 mg/dL Problem List/Assessment/Plan Problems(with codes): (1) Intractable abdominal pain (2) Atypical pneumonia (3) ACS (acute coronary syndrome) (4) COPD (chronic obstructive pulmonary disease) Problem List/Assessment/Plan ID Problem List: - Abdominal pain - Constipation - Asthma COPD - Hypoxia - Pulmonary nodules - Smoking history Assessment This is an 84-year-old female with a past medical history of asthma, COPD, and a significant smoking history (quit six years ago), who presents with two weeks of severe abdominal pain. The pain is localized to the right flank, described as a burning sensation, and is associated with mild abdominal distension. She denies fevers, chills, rash, diarrhea, or vomiting. Her last bowel movement was over 24 hours ago. Vital signs are notable for an oxygen saturation of 91% on room air. Physical examination reveals bilateral crackles in the lungs and guarding with rebound tenderness in the right upper quadrant of the abdomen. Laboratory studies show hemoglobin 13.8, platelet count 323,000, sodium 140, BUN 16, creatinine 0.72, AST 16, ALT 22, and lipase 26. Urinalysis shows few bacteria and squamous epithelial cells, with no pyuria or nitrites. Imaging findings include: - Bilateral basal lung opacities suggestive of atypical pneumonia. - An indeterminate 0.5 cm nodule in the right middle lobe. - A single solid pulmonary nodule less than 6 mm. - Scattered diffuse chronic scarring. A Doppler ultrasound of the right lower extremity showed no deep vein thrombosis. 02/08: continues to be hypoxic on room air at 92% , CT abdomen and pelvis shows a mild diffuse trim blood nodularity non specific and may represent atypic inflammatory process 0.5 nodule in the right anterior lung base 02/09: Hypoxia appears to be improving Plan: - no need to send out on any antibiotics or antifungals - defer to pulmonology team for asthma disease and exacerbation in setting of atypical infection - follow up with infectious disease in 2-4 weeks -continue azithromycin - recommend sputum and blood cultures - recommend legionella urinary antigen - recommend cocci antibody bidda D , glucan and aspergillus fungal serologies and can follow these as outpatient - Abdominal pain and constipation: - Initiate a bowel regimen to alleviate constipation, which is suspected to be contributing to the abdominal pain. - Pulmonary findings: - No empiric antifungal therapy is warranted at this time due to low risk for fungal pneumonia. - Obtain sputum cultures and blood cultures to assess for infectious etiology. - Hypoxia: - Monitor oxygen saturation and provide supplemental oxygen as needed. - Asthma and COPD: - Continue current inhaler regimen and monitor respiratory status. - Smoking history: - Acknowledge cessation six years ago; no intervention needed at this time. Isolation Precautions: Standard Plan discussed with: FLEX Valente MD Feb 10, 2025 23:47
[2025-02-12 10:06] LABS: Blastomyces Antibody DID Negative (Neg:<1:1)
[2025-02-15 03:11] LABS: QuantiFERON-TB Gold Plus Indeterminate (Negative)
[2025-02-15 14:07] LABS: Aspergillus flavus Negative (Neg:<1:1); Aspergillus fumigatus Negative (Neg:<1:1); Aspergillus niger Negative (Neg:<1:1)
== END 2025-02-09 16:45 | disposition home or self-care (01) | DRG 389 ==
LOC: ER 12:12 → OVERFLOW 19:01 → EAST 22:11
PROVIDERS: ADMIT Student in an Organized Health Care Education/Training Program; ATTEND Student in an Organized Health Care Education/Training Program
DX: K56.41 Fecal impaction (principal); B48.8 Other specified mycoses; R91.1 Solitary pulmonary nodule; J44.89 Other specified chronic obstructive pulmonary disease; M16.0 Bilateral primary osteoarthritis of hip; Z87.891 Personal history of nicotine dependence; Z79.899 Other long term (current) drug therapy
CPT/HCPCS: 36415; 71260; 73501; 73502; 74176; 74177; 80048; 80053; 81001; 83690; 85025; 86606; 86612; 86635; 86698; 93971; 96365; 97163; G0378; J2405

== ENCOUNTER → 2025-03-24 | Outpatient (CLI) | payer OTHER, MEDICAID ==
[~2025-03-24] MED LIST: ALBU108A5 PO; FLUC200T50 PO; FLUT110A8 INH
== END | disposition home or self-care (01) ==
LOC: RT 09:08
PROVIDERS: ATTEND Internal Medicine Pulmonary Disease
DX: R06.09 Other forms of dyspnea (principal)
CPT/HCPCS: 94060; 94618; 94727; 94729